=== PATIENT | female | born 1960 | race Caucasian/White ===

== ENCOUNTER 2020-03-17 10:58 | Emergency (ER) | payer SELFPAY ==
[2020-03-17] MEDS ORDERED: ACETAMINOPHEN 325 MG TABLET PO ONE (11:19)
[2020-03-17] MEDS ORDERED: CYCLOBENZAPRINE HCL 10 MG TABLET PO ONE (11:19)
--- NOTE | 2020-03-17 11:24 | ER Document Report ---
ED Neck/Back Problem - General Chief Complaint: Back Injury Stated Complaint: FELL- BACK INJURY/PAIN Time Seen by Provider: 03/17/20 11:12 Mode of Arrival: Ambulatory Information source: Patient Notes: 59-year-old female presents to ED for complaint of upper and lower back. She states she fell down some brick steps 2 days ago. She states she has not seen a doctor and is not taking any medications for the pain. She came in today to find out why she is having pain. She is alert oriented respirations regular nonlabored speaking in full sentences. 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 Patient is alert oriented respirations regular nonlabored speaking in full sentences walks with even steady gait. - HPI Patient complains to provider of: Pain, Injury, Upper back, Lower back Onset: Other Where: Indoors - 2 days ago Onset: Gradual Quality of pain: Achy, Burning, Sharp Severity: Severe Pain Level: 5 Context: Fall/near-fall Recent injury: Yes Associated symptoms: Lower back pain, Upper back pain. denies: Constipation, Incontinence, Like prior neck/back pain, Motor loss, Numbness/tingling, Radiation to arm, Radiation to chest, Radiation to leg, Sensory loss, Sweaty, Unable to urinate Exacerbated by: Movement of trunk Relieved by: Nothing Similar symptoms previously: No Recently seen / treated by doctor: No - Related Data Allergies/Adverse Reactions: apricot Allergy (Verified 03/17/20 11:13) buspirone [From BuSpar] Allergy (Verified 03/17/20 11:13) carbamazepine [From Tegretol] Allergy (Verified 03/17/20 11:13) citalopram [From Celexa] Allergy (Verified 03/17/20 11:13) divalproex sodium [From Depakote] Allergy (Verified 03/17/20 11:13) lithium Allergy (Verified 03/17/20 11:13) nitrofurantoin [From Macrobid] Allergy (Verified 03/17/20 11:13) olanzapine [From Zyprexa] Allergy (Verified 03/17/20 11:13) sweet potato Allergy (Verified 03/17/20 11:13) Past Medical History - General Information source: Patient - Social History Smoking Status: Current Every Day Smoker Cigarette use (# per day): Yes - 1/2 pack/day Smoking Education Provided: Yes Frequency of alcohol use: None Drug Abuse: None Family History: Reviewed & Not Pertinent Patient has suicidal ideation: No Patient has homicidal ideation: No - Past Medical History Cardiac Medical History: Reports: None Pulmonary Medical History: Reports: None EENT Medical History: Reports: None Neurological Medical History: Reports: None Endocrine Medical History: Reports: None Renal/ Medical History: Reports: Other - Right kidney removed due to disease Malignancy Medical History: Reports: None GI Medical History: Reports: None Musculoskeletal Medical History: Reports Hx Musculoskeletal Deformity, Reports Hx Musculoskeletal Trauma Skin Medical History: Reports None Psychiatric Medical History: Reports: Hx Bipolar Disorder Traumatic Medical History: Reports: None Infectious Medical History: Reports: None Past Surgical History: Reports: Hx Inguinal Hernia - Right, Hx Orthopedic Surgery - Right knee for meniscus repair and muscle repair, Hx Tonsillectomy Review of Systems - Review of Systems Constitutional: No symptoms reported EENT: No symptoms reported Cardiovascular: No symptoms reported Respiratory: No symptoms reported Gastrointestinal: No symptoms reported Genitourinary: No symptoms reported Female Genitourinary: No symptoms reported Musculoskeletal: No symptoms reported, Back pain, Muscle pain, Muscle stiffness Skin: No symptoms reported Hematologic/Lymphatic: No symptoms reported Neurological/Psychological: No symptoms reported -: Yes All other systems reviewed and negative Physical Exam - Vital signs Vitals: Temp Pulse Resp BP Pulse Ox 98.9 F 111 H 18 159/80 H 96 03/17/20 11:05 03/17/20 11:05 03/17/20 11:05 03/17/20 11:05 03/17/20 11:05 Interpretation: Normal - General General appearance: Appears well, Alert - HEENT Head: Normocephalic, Atraumatic Eyes: Normal Pupils: PERRL - Respiratory Respiratory status: No respiratory distress Chest status: Nontender Breath sounds: Normal Chest palpation: Normal - Cardiovascular Rhythm: Regular Heart sounds: Normal auscultation Murmur: No - Abdominal Inspection: Normal Distension: No distension Bowel sounds: Normal Tenderness: Nontender Organomegaly: No organomegaly - Back Back: Normal, Tender - Bilateral sides of upper and lower back pain. No: Deformity/step-off, CVA tenderness, Scars, Scoliosis, Wounds - Extremities General upper extremity: Normal inspection, Nontender, Normal color, Normal ROM, Normal temperature General lower extremity: Normal inspection, Nontender, Normal color, Normal ROM, Normal temperature, Normal weight bearing. No: Yosi's sign - Neurological Neuro grossly intact: Yes Cognition: Normal Orientation: AAOx4 [place] Coma Scale Eye Opening: Spontaneous [place] Coma Scale Verbal: Oriented Timothy Coma Scale Motor: Obeys Commands Timothy Coma Scale Total: 15 Speech: Normal Motor strength normal: LUE, RUE, LLE, RLE Sensory: Normal - Psychological Associated symptoms: Normal affect, Normal mood - Skin Skin Temperature: Warm Skin Moisture: Dry Skin Color: Normal Course - Vital Signs Vital signs: Temp Pulse Resp BP Pulse Ox 98.9 F 111 H 18 159/80 H 96 03/17/20 11:05 03/17/20 11:05 03/17/20 11:05 03/17/20 11:05 03/17/20 11:05
--- NOTE | 2020-03-17 12:06 | RADIOLOGY REPORT (SQ) ---
EXAM DESCRIPTION: CHEST 2 VIEWS IMAGES COMPLETED DATE/TIME: 03/17/2020 11:55 am REASON FOR STUDY: pain fall possible injury COMPARISON: None. EXAM PARAMETERS: NUMBER OF VIEWS: two views TECHNIQUE: Digital Frontal and Lateral radiographic views of the chest acquired. RADIATION DOSE: NA LIMITATIONS: none FINDINGS: LUNGS AND PLEURA: There is a small right pleural effusion with airspace opacity at the rig ht lung base. No pneumothorax. MEDIASTINUM AND HILAR STRUCTURES: No masses or contour abnormalities. HEART AND VASCULAR STRUCTURES: Heart normal size. No evidence for failure. BONES: Mild multilevel degenerative changes at the spine. HARDWARE: None in the chest. OTHER: Surgical clips at the right upper quadrant. IMPRESSION: Small right pleural effusion with airspace opacity at the right lung base, may be second kalpana to atelectasis or pneumonia. TECHNICAL DOCUMENTATION: JOB ID: [id number] 2010 [employer]- All Rights Reserved Reading location - IP/workstation name: [email or web address]
--- NOTE | 2020-03-17 12:09 | RADIOLOGY REPORT (SQ) ---
EXAM DESCRIPTION: T SPINE AP/LAT IMAGES COMPLETED DATE/TIME: 03/17/2020 11:55 am REASON FOR STUDY: pain fall possible injury COMPARISON: Chest x-ray 03/17/2020. NUMBER OF VIEWS: Two views. TECHNIQUE: AP and lateral radiographic images acquired of the thoracic spine. LIMITATIONS: The upper thoracic spine is obscured by the patient's shoulders. FINDINGS: MINERALIZATION: Normal. ALIGNMENT: There is increased thoracic kyphosis. VERTEBRAE: The upper thoracic spine is obscured by the patient's shoulders on the lateral view. No c ompression fracture at the visualized thoracic spine. DISCS: Mild multilevel degenerative disc disease. HARDWARE: None in the spine. MEDIASTINUM AND SOFT TISSUES: Normal heart size and aortic contour. No soft tissue abnormality. VISUALIZED LUNGS: Clear. IMPRESSION: Mild multilevel degenerative disc disease at the thoracic spine. No evidence for compre ssion fracture at the visualized thoracic spine, please note that the upper thoracic spine is not wel l evaluated on this exam. TECHNICAL DOCUMENTATION: JOB ID: [id number] 2010 [employer]- All Rights Reserved Reading location - IP/workstation name: [email or web address]
--- NOTE | 2020-03-17 12:14 | RADIOLOGY REPORT (SQ) ---
EXAM DESCRIPTION: L SPINE WHOLE IMAGES COMPLETED DATE/TIME: 03/17/2020 11:55 am REASON FOR STUDY: pain fall possible injury COMPARISON: None. NUMBER OF VIEWS: Five views including obliques. TECHNIQUE: AP, lateral, oblique, and sacral radiographic images acquired of the lumbar spine. LIMITATIONS: None. FINDINGS: MINERALIZATION: Normal. ALIGNMENT: There is dextrocurvature of the lumbar lordosis. There is mild anterolisthesis of L4 on L 5. VERTEBRAE: No compression fracture. DISCS: Multilevel disc space narrowing with osteophytes. POSTERIOR ELEMENTS: Pedicles and facets are intact. No pars defect. Facet arthropathy is present. HARDWARE: None in the spine. Surgical clips are noted at the right hemiabdomen. PARASPINAL SOFT TISSUES: The battery pack from a sacral stimulator is noted at the gluteal region. PELVIS: SI joints intact. IMPRESSION: Multilevel degenerative changes at the lumbar spine. No evidence for compression fractu re. TECHNICAL DOCUMENTATION: JOB ID: [id number] 2010 [employer]- All Rights Reserved Reading location - IP/workstation name: [email or web address]
--- NOTE | 2020-03-17 12:44 | ER Document Report ---
ED Medical Screen (RME) - General Chief Complaint: Back Injury Stated Complaint: FELL- BACK INJURY/PAIN Time Seen by Provider: 03/17/20 11:12 Mode of Arrival: Ambulatory Notes: 59-year-old female presents to ED for complaint of upper and lower back. She states she fell down some brick steps 2 days ago. She states she has not seen a doctor and is not taking any medications for the pain. She came in today to find out why she is having pain. She is alert oriented respirations regular nonlabored speaking in full sentences. 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 Patient is alert oriented respirations regular nonlabored speaking in full sentences walks with even steady gait. Chest x-ray showed pleural effusion versus pneumonia. Will get labs and CT of checks to ensure there is no bleeding. I have greeted and performed a rapid initial assessment of this patient. A comprehensive ED assessment and evaluation of the patient, analysis of test results and completion of medical decision making process will be conducted by an additional ED providers. - Related Data Allergies/Adverse Reactions: apricot Allergy (Verified 03/17/20 11:13) buspirone [From BuSpar] Allergy (Verified 03/17/20 11:13) carbamazepine [From Tegretol] Allergy (Verified 03/17/20 11:13) citalopram [From Celexa] Allergy (Verified 03/17/20 11:13) divalproex sodium [From Depakote] Allergy (Verified 03/17/20 11:13) lithium Allergy (Verified 03/17/20 11:13) nitrofurantoin [From Macrobid] Allergy (Verified 03/17/20 11:13) olanzapine [From Zyprexa] Allergy (Verified 03/17/20 11:13) sweet potato Allergy (Verified 03/17/20 11:13) Past Medical History - Social History Cigarette use (# per day): Yes - 1/2 pack/day Frequency of alcohol use: None Drug Abuse: None - Past Medical History Cardiac Medical History: Reports: None Pulmonary Medical History: Reports: None EENT Medical History: Reports: None Neurological Medical History: Reports: None Endocrine Medical History: Reports: None Renal/ Medical History: Reports: Other - Right kidney removed due to disease Malignancy Medical History: Reports: None GI Medical History: Reports: None Musculoskeltal Medical History: Reports Hx Musculoskeletal Deformity, Reports Hx Musculoskeletal Trauma Skin Medical History: Reports None Psychiatric Medical History: Reports: Hx Bipolar Disorder Traumatic Medical History: Reports: None Infectious Medical History: Reports: None Past Surgical History: Reports: Hx Inguinal Hernia - Right, Hx Kidney (Renal Surgery) - R nephrectomy, Hx Orthopedic Surgery - Right knee for meniscus repair and muscle repair, Hx Tonsillectomy Physical Exam - Vital signs Vitals: Temp Pulse Resp BP Pulse Ox 98.9 F 111 H 18 159/80 H 96 03/17/20 11:05 03/17/20 11:05 03/17/20 11:05 03/17/20 11:05 03/17/20 11:05 Course - Vital Signs Vital signs: Temp Pulse Resp BP Pulse Ox 98.9 F 111 H 18 159/80 H 96 03/17/20 11:05 03/17/20 11:05 03/17/20 11:05 03/17/20 11:05 03/17/20 11:05
[2020-03-17] MEDS ORDERED: MORPHINE SULFATE 10 MG/ML INJ IV ONE ×2 (13:18→16:35)
--- NOTE | 2020-03-17 13:19 | ER Document Report ---
ED Neck/Back Problem - General Chief Complaint: Back Injury Stated Complaint: FELL- BACK INJURY/PAIN Time Seen by Provider: 03/17/20 11:12 Primary Care Provider: AGGIE REESE MD [NO LOCAL MD] - Follow up tomorrow (Call tomorrow for an outpatient follow-up appointment) Mode of Arrival: Ambulatory Information source: Patient Notes: 59-year-old female past medical history significant for hypertension, bipolar here visiting her family from [place] presents to the emergency room complaining of some mid upper and lower back pain for the past 3 days. Patient states she fell down 3 stairs while attempting to go up the stairs after losing her balance fell backward landing on her back. Denies hitting her head. No loss of consciousness. No history of previous back pain. States she has been taking Tylenol without relief. Hurts to take a deep breath but she denies shortness of breath or difficulty breathing. Denies chest pain. TRAVEL OUTSIDE OF THE [place] IN LAST 30 DAYS: No - Related Data Allergies/Adverse Reactions: apricot Allergy (Verified 03/17/20 11:13) buspirone [From BuSpar] Allergy (Verified 03/17/20 11:13) carbamazepine [From Tegretol] Allergy (Verified 03/17/20 11:13) citalopram [From Celexa] Allergy (Verified 03/17/20 11:13) divalproex sodium [From Depakote] Allergy (Verified 03/17/20 11:13) lithium Allergy (Verified 03/17/20 11:13) nitrofurantoin [From Macrobid] Allergy (Verified 03/17/20 11:13) olanzapine [From Zyprexa] Allergy (Verified 03/17/20 11:13) sweet potato Allergy (Verified 03/17/20 11:13) Past Medical History - General Information source: Patient - Social History Smoking Status: Current Every Day Smoker Cigarette use (# per day): Yes - 1/2 pack/day Frequency of alcohol use: None Drug Abuse: None Family History: Reviewed & Not Pertinent - Past Medical History Cardiac Medical History: Reports: Hx Hypertension Pulmonary Medical History: Reports: None EENT Medical History: Reports: None Neurological Medical History: Reports: None Endocrine Medical History: Reports: None Renal/ Medical History: Reports: Other - Right kidney removed due to disease Malignancy Medical History: Reports: None GI Medical History: Reports: None Musculoskeletal Medical History: Reports Hx Musculoskeletal Deformity, Reports Hx Musculoskeletal Trauma Skin Medical History: Reports None Psychiatric Medical History: Reports: Hx Bipolar Disorder Traumatic Medical History: Reports: None Infectious Medical History: Reports: None Past Surgical History: Reports: Hx Inguinal Hernia - Right, Hx Kidney (Renal Surgery) - R nephrectomy, Hx Orthopedic Surgery - Right knee for meniscus repair and muscle repair, Hx Tonsillectomy Review of Systems - Review of Systems Constitutional: No symptoms reported Cardiovascular: No symptoms reported Respiratory: No symptoms reported Gastrointestinal: No symptoms reported Musculoskeletal: Back pain Skin: No symptoms reported Neurological/Psychological: No symptoms reported -: Yes All other systems reviewed and negative Physical Exam - Vital signs Vitals: Temp Pulse Resp BP Pulse Ox 98.9 F 111 H 18 159/80 H 96 03/17/20 11:05 03/17/20 11:05 03/17/20 11:05 03/17/20 11:05 03/17/20 11:05 - General General appearance: Appears well, Alert In distress: Mild - HEENT Head: Normocephalic, Atraumatic Eyes: Normal Pupils: PERRL - Respiratory Respiratory status: No respiratory distress Chest status: Nontender Breath sounds: Normal Chest palpation: Normal - Cardiovascular Rhythm: Tachycardia Heart sounds: Normal auscultation Murmur: No Friction rub: No Gallop: None auscultated - Abdominal Inspection: Normal Distension: No distension Bowel sounds: Normal Tenderness: Nontender Organomegaly: No organomegaly - Back Back: Normal, Tender, Vertebra tenderness - Patient has tenderness palpation the vertebral spine from T4-T12. There is no obvious deformity noted. Painful range of motion when going from a lying to a sitting position.. No: Deformity/step-off, CVA tenderness - Extremities General upper extremity: Normal inspection, Nontender, Normal color, Normal ROM, Normal temperature General lower extremity: Normal inspection, Nontender, Normal color, Normal ROM, Normal temperature, Normal weight bearing. No: Yosi's sign - Neurological Neuro grossly intact: Yes Cognition: Normal Orientation: AAOx4 Timothy Coma Scale Eye Opening: Spontaneous [place] Coma Scale Verbal: Oriented [place] Coma Scale Motor: Obeys Commands Timothy Coma Scale Total: 15 Speech: Normal Motor strength normal: LUE, RUE, LLE, RLE Sensory: Normal - Skin Skin Temperature: Warm Skin Moisture: Dry Skin Color: Normal Course - Re-evaluation Re-evalutation: 03/17/20 13:27 Patient presents with significant mid upper to lower back pain x3 days after a mechanical fall. Patient was seen and evaluated in triage was noted to have a pleural effusion on her chest x-ray. T-spine and L-spine showed degenerative disc disease. Labs and CT of the chest were ordered in triage. Patient was given Tylenol and Flexeril in triage without relief of her pain. Will give IV morphine and reevaluate. 03/17/[address] findings at length with patient. Aware of need for possible transfer to a trauma center secondary to multiple thoracic spine fractures. Patient is willi ng to be transferred if necessary. She is currently resting comfortably requesting additional pain medication. She is ambulatory in the room neurovascularly intact. 03/17/20 17:50 Patient is currently resting comfortably patient is aware that we will not need to [facility] as previously discussed. Spoke with trauma surgeon Dr. Razia Ham as well as neurosurgeon Dr. Reese. No additional intervention is needed. No back bracing per Dr. Reese be followed as an outpatient. Recomm ends discharge home with pain control. Patient is neurovascularly intact. She is ambulatory with a steady gait. Discussed discharge instructions with patient at length. Take medications as prescribed. [facility] records were reviewed. No significant history of narcotic abuse. She was given Dr. Reese contact information should she not hear from them within the next 2 to 3 days for an appointment. . Okay for additional pain medication. Patient was given strict return to the emergency room guidelines. Return for any new or worsening symptoms. All questions were answered. Patient verbalized understanding and agrees with plan of care. 03/17/20 17:52 03/17/20 19:33 - Vital Signs Vital signs: Temp Pulse Resp BP Pulse Ox 98.1 F 78 20 176/84 H 97 03/17/20 18:06 03/17/20 18:06 03/17/20 18:06 03/17/20 18:06 03/17/20 18:06 - Laboratory Result Diagrams: 03/17/20 13:18 03/17/20 13:18 Laboratory results interpreted by me: 03/17/20 03/17/20 13:18 13:18 Chloride 113 H Carbon Dioxide 20 L Glucose 117 H ALT 40 H NT-Pro-B Natriuret Pep 487 H - Diagnostic Test Radiology reviewed: Reports reviewed - Consults Dr. Razia Ham Time consulted: 16:23 Reason for consultation: 03/17/20 16:34 Reviewed CAT scan and x-ray results with patient. Aware of need for possible transfer. Patient agreeable to transfer if needed. Sling additional pain medication. Spoke with [facility] transfer center spoke with trauma surgeon Dr. Razia Ham reviewed CAT scan results with Dr. Ham. She will speak with neurosurgery and determine if patient needs to be transferred or can be discharged home with a back brace which we do not have the availability to get. Dr. Reese Reason for consultation: 03/17/20 17:[address] Reese, neurosurgeon at [facility] who states patient does not need to have a back brace at this time. If she is neurovascularly intact, which she is she can be discharged home with pain medication and outpatient follow-up. States they were call her this week for a follow-up appointment. Critical Care Note - Critical Care Note Total time excluding time spent on procedures (mins): 30 Comments: Critical care time spent obtaining history from patient or surrogate, discussions with consultants, development of treatment plan with patient or surrogate, evaluation of patient's response to treatment, examination of patient, ordering and performing treatments and interventions, ordering and review of laboratory studies, re-evaluation of patient's condition, ordering and review of radiographic studies and review of old charts Discharge - Discharge Clinical Impression: Fracture of thoracic vertebra Qualifiers: Encounter type: initial encounter Thoracic vertebra fracture level: T4 Fracture type: closed Fracture morphology: wedge compression Qualified Code(s): S22.040A - Wedge compression fracture of fourth thoracic vertebra, initial encounter for closed fracture Closed T5 fracture Qualifiers: Encounter type: initial encounter Fracture morphology: unspecified fracture morphology Qualified Code(s): S22.059A - Unspecified fracture of T5-T6 vertebra, initial encounter for closed fracture Closed T6 spinal fracture Qualifiers: Encounter type: initial encounter Fracture morphology: unspecified fracture morphology Qualified Code(s): S22.059A - Unspecified fracture of T5-T6 vertebra, initial encounter for closed fracture Closed T7 fracture Qualifiers: Encounter type: initial encounter Fracture morphology: unspecified fracture morphology Qualified Code(s): S22.069A - Unspecified fracture of T7-T8 vertebra, initial encounter for closed fracture Closed fracture of T8 vertebra Qualifiers: Encounter type: initial encounter Fracture morphology: unspecified fracture morphology Qualified Code(s): S22.069A - Unspecified fracture of T7-T8 vertebra, initial encounter for closed fracture Condition: Stable Disposition: HOME, SELF-CARE Instructions: Back Injury with Fracture ([facility]) Additional Instructions: Take pain medications as prescribed. Outpatient follow-up with Dr. Reese, neurosurgeon at [facility] in [place] as discussed. Return to the emergency room for any new or worsening symptoms. Prescriptions: Oxycodone HCl/Acetaminophen [Percocet 5-325 mg Tablet] 1 tab PO Q4H PRN #15 tablet PRN Reason: For Back Pain Referrals: AGGIE REESE MD [NO LOCAL MD] - Follow up tomorrow (Call tomorrow for an outpatient follow-up appointment)
[2020-03-17 13:35] LABS: ABSOLUTE BASOPHILS # (AUTO) 0.1 10^3/uL (0.0-0.2); ABSOLUTE EOSINOPHILS # (AUTO) 0.1 10^3/uL (0.0-0.6); ABSOLUTE LYMPHOCYTES (AUTO) 2.9 10^3/uL (0.5-4.7); ABSOLUTE MONOCYTES (AUTO) 0.7 10^3/uL (0.1-1.4); ABSOLUTE NEUT (AUTO) 5.8 10^3/uL (1.7-8.2); BASOPHILS % (AUTO) 0.6 % (0-2); EOSINOPHILS % (AUTO) 1.1 % (0-6); HEMATOCRIT 42.7 % (36.0-47.0); HEMOGLOBIN 14.3 g/dL (12.0-15.5); LYMPHOCYTES % (AUTO) 30.1 % (13-45); MEAN CORPUSCULAR HEMOGLOBIN 30.7 pg (27.0-33.4); MEAN CORPUSCULAR HGB CONC 33.4 g/dL (32.0-36.0); MEAN CORPUSCULAR VOLUME 92 fl (80-97); PLATELET COUNT 191 10^3/uL (150-450); RED BLOOD COUNT 4.64 10^6/uL (3.72-5.28); SEGMENTED NEUTROPHILS % (AUTO) 61.2 % (42-78); TOTAL CELLS COUNTED % (AUTO) 100 %; WHITE BLOOD COUNT 9.5 10^3/uL (4.0-10.5)
[2020-03-17 13:53] LABS: ALBUMIN 3.8 g/dL (3.5-5.0); ALKALINE PHOSPHATASE 80 U/L (38-126); ANION GAP 6 (5-19); ASPARTATE AMINO TRANSFERASE 36 U/L (14-36); BILIRUBIN,TOTAL 0.3 mg/dL (0.2-1.3); BLOOD UREA NITROGEN 12 mg/dL (7-20); CALCIUM 8.6 mg/dL (8.4-10.2); CARBON DIOXIDE 20 mmol/L (22-30); CHLORIDE 113 mmol/L (98-107); GLUCOSE 117 mg/dL (75-110); POTASSIUM 4.3 mmol/L (3.6-5.0); TOTAL PROTEIN 6.7 g/dL (6.3-8.2)
--- NOTE | 2020-03-17 16:04 | RADIOLOGY REPORT (SQ) ---
EXAM DESCRIPTION: CT CHEST WITH IMAGES COMPLETED DATE/TIME: 03/17/2020 3:42 pm REASON FOR STUDY: Fall pleural effusion on x-ray COMPARISON: Chest x-ray 03/17/2020. TECHNIQUE: CT scan of the chest performed using helical scanning technique with dynamic intravenous contrast injection. Images reviewed with lung, soft tissue and bone windows. Reconstructed coronal and sagittal MPR and MIP images reviewed. All images stored on PACS. All CT scanners at this facility use dose modulation, iterative reconstruction, and/or weight based d osing when appropriate to reduce radiation dose to as low as reasonably achievable (ALARA). [facility]: Dose Right [facility]: CareDose [facility]: Dose Right [facility]: Teradose 4D [facility]: KOWN CONTRAST TYPE AND DOSE: contrast/concentration: Isovue 350.00 mmol/ml; Total Contrast Delivered: 80. 0 ml; Total Saline Delivered: 55.0 ml RENAL FUNCTION: Creatinine 0.90 RADIATION DOSE: CT Rad equipment meets quality standard of care and radiation dose reduction techniq ues were employed. CTDIvol: 16.1 mGy. DLP: 712 mGy-cm. . LIMITATIONS: There is motion artifact. FINDINGS: LUNGS AND PLEURA: The evaluation of the lungs is degraded by motion artifact. There are t race bilateral pleural effusions with mild atelectasis at the bilateral lower lobes. No pneumothorax . HILAR AND MEDIASTINAL STRUCTURES: No identified masses or abnormal nodes. No mediastinal hematoma or pneumomediastinum. HEART AND VASCULAR STRUCTURES: No thoracic aortic aneurysm. HARDWARE: None in the chest. UPPER ABDOMEN: There is diffuse decreased attenuation of the liver most consistent with fatty infiltr ation. Status post cholecystectomy. THYROID AND OTHER SOFT TISSUES: No masses. No adenopathy. BONES: Acute mildly displaced fractures are noted at the spinous processes of T4, T5, T6, T7 and T8. There is compression deformity with anterior wedging of T4 vertebral body. A Schmorl's node is note d at the superior endplate of T4. No prevertebral soft tissue swelling. No acute displaced fracture at the sternum or ribs. IMPRESSION: 1. Acute fractures at the spinous processes of T4 through T8. 2. Compression deformity with anterior wedging of T4, of indeterminate age. If there is clinical con cern for acute fracture, MRI can be obtained for further evaluation. 3. Trace bilateral pleural effusions. Mild bibasilar atelectasis. 4. Fatty infiltration of the liver. TECHNICAL DOCUMENTATION: JOB ID: [id number] [facility] Quality ID # [id number]: Final reports with documentation of one or more dose reduction techniques (e.g., Au tomated exposure control, adjustment of the mA and/or kV according to patient size, use of iterative reconstruction technique) 2010 [employer]- All Rights Reserved Reading location - IP/workstation name: [email or web address]
[2020-03-17 18:10] VITALS: BP 176/84
== END 2020-03-17 18:45 | disposition home or self-care (01) ==
LOC: ER 10:58
DX: S22.040A Wedge compression fracture of fourth thoracic vertebra, initial encounter for closed fracture (principal); S22.059A Unspecified fracture of T5-T6 vertebra, initial encounter for closed fracture; S22.069A Unspecified fracture of T7-T8 vertebra, initial encounter for closed fracture; M54.9 Dorsalgia, unspecified; R10.10 Upper abdominal pain, unspecified; M54.5 Low back pain; W10.9XXA Fall (on) (from) unspecified stairs and steps, initial encounter; Z88.8 Allergy status to other drugs, medicaments and biological substances; F17.210 Nicotine dependence, cigarettes, uncomplicated; I10 Essential (primary) hypertension
CPT/HCPCS: 96374; 96376; 99291; 36415; 85025; 80053; 83880; 71046; 72110; 72070; 71260; J2270